=== PATIENT | female | born 2000 | race Caucasian/White ===

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

== ENCOUNTER → 2025-09-03 | Outpatient (CLI) | payer OTHER ==
[2025-09-03 18:18] LABS: PLATELET COUNT, AUTOMATED 402 10^3/uL (150-450)
[2025-09-03 18:50] LABS: HIV 1&2 SCREEN NEGATIVE (NEGATIVE)
[2025-09-03 18:57] LABS: HEPATITIS C VIRUS ABY INDEX < 0.02 INDEX (<0.8)
[2025-09-03 20:15] LABS: Trichomonas vaginalis (AMP) NOT DETECTED (NEGATIVE)
[2025-09-03 20:39] LABS: GC DNA AMPLIFICATION NEGATIVE (NEGATIVE)
== END ==
LOC: M PLALAB 14:47
PROVIDERS: ATTEND Nurse Practitioner Family
DX: Z34.80 Encounter for supervision of other normal pregnancy, unspecified trimester (principal)

== ENCOUNTER → 2025-10-01 | Outpatient (REF) | payer MEDICAID, OTHER ==
[2025-10-01 12:17] LABS: Trichomonas vaginalis (AMP) NOT DETECTED (NEGATIVE)
[2025-10-01 12:41] LABS: GC DNA AMPLIFICATION NEGATIVE (NEGATIVE)
== END ==
LOC: M SFHCWAGY 09:53
PROVIDERS: ATTEND Nurse Practitioner Family
DX: A74.9 Chlamydial infection, unspecified (principal); R82.90 Unspecified abnormal findings in urine